=== PATIENT | female | born 1955 | race American Indian/Alaskan Native ===

== ENCOUNTER 2017-04-17 15:27 | Outpatient (CLI) | payer BC ==
--- NOTE | 2017-04-17 16:58 | Mammography Report ---
BILATERAL MAMMOGRAM: FINDINGS: There are scattered fibroglandular densities (approximately 25%-50% glandular). No mass, distortion, suspicious calcification, or skin change is seen. No significant changes when compared to prior exams in 2016 and 2015. Complete resolution of sebaceous cyst previously noted in right breast. CAD was utilized. IMPRESSION: Negative mammogram. There is no mammographic evidence of malignancy. RECOMMENDATION: Follow-up per ACS guidelines. BI-RADS CATEGORY: 1 = Negative ACR BI-RADS MAMMOGRAPHIC CODES: 0 = Needs additional imaging evaluation; 1 = Negative; 2 = Benign; 3 = Probably benign; 4 = Suspicious; 5 = Malignant; 6 = Known biopsy-proven malignancy COMMENT: 1. Dense breast tissue, i.e., adenosis, fibrocystic changes, etc., may obscure an underlying neoplasm. 2. Approximately 10% of cancers are not detected with mammography. 3. A negative mammography report should not delay biopsy if a clinically suspicious mass is present. COMMENT: Patient follow-up letters are generated in N-1-1.
== END 2017-04-17 15:28 | disposition home or self-care (01) ==
LOC: MAMMO 15:27
PROVIDERS: ATTEND Obstetrics & Gynecology
DX: Z12.31 Encounter for screening mammogram for malignant neoplasm of breast (principal)
CPT/HCPCS: 77067; G0202

== ENCOUNTER 2017-09-26 12:23 | Outpatient (CLI) | payer BC ==
--- NOTE | 2017-09-26 15:39 | Cat Scan Report ---
FINAL REPORT EXAM: CT NECK WO CON HISTORY: CERVICALGIA/M54.2/NECK PAIN PT FEELS LIKE NECK IS SPASMING TECHNIQUE: Axial noncontrast CT images of the cervical spine were performed. Multiplanar reformats are performed on the acquisition scanner. Total exam DLP 414.69 mGy-cm Comparison: None FINDINGS: Orbits and orbital apices are unremarkable. There is mild prominence of the lateral ventricles compatible with small vessel ischemic disease and ex vacuo dilatation lateral ventricles. There is right frontal and ethmoid opacification. There is bilateral ethmoid and bilateral maxillary sinus mucosal thickening. Sphenoid sinuses and mastoid air cells are clear. Nasopharynx is unremarkable. Parotid glands are symmetric. Oropharynx is within normal limits. There are multiple small cervical chain lymph nodes. Floor of mouth is within normal limits. Thyroid gland is prominent. Imaged lung apices are clear. There is straightening of the normal cervical lordosis. There are drooping osteophytes from C3-C4 and C4-C5. Vertebral body heights are maintained. Pedicles are intact. Facets shingle normally. There is facet osteoarthritis. There is mild dextroscoliosis cervical spine. There appears to be partial fusion of the C3-C4 vertebral body with a garry vertebral body of C3. This appears to be a developmental anomaly. The sternocleidomastoid are symmetric suggesting there is no significant torticollis element. C1 lateral masses align normally on C2. The odontoid is intact. Axial images demonstrate diffuse facet osteoarthritis. No definite canal stenosis. Patient is nearly edentulous. 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 Partial fusion of the left C4/C5 facets. No definite canal stenosis. Symmetric sternocleidomastoid suggesting no imaging findings of torticollis. No acute fractures. Pansinus disease.
== END 2017-09-26 12:24 | disposition home or self-care (01) ==
LOC: CT 12:23
PROVIDERS: ATTEND Internal Medicine
DX: J32.4 Chronic pansinusitis (principal); M47.892 Other spondylosis, cervical region; M41.82 Other forms of scoliosis, cervical region; M43.22 Fusion of spine, cervical region
CPT/HCPCS: 70490

== ENCOUNTER 2018-12-04 07:47 | Outpatient (CLI) | payer BC ==
--- NOTE | 2018-12-04 11:00 | Mammography Report ---
BILATERAL DIGITAL SCREENING MAMMOGRAM with CAD: 12/04/18 07:47:00 CLINICAL: Routine screening. COMPARISON: 04/17/17 FINDINGS: There are bilateral scattered areas of fibroglandular density.No mass, architectural distortion or suspicious calcifications. IMPRESSION: No mammographic evidence of malignancy. BI-RADS CATEGORY: 1 -- Negative RECOMMENDATION: Routine mammographic screening in one year. COMMENT: Patient follow-up letters are generated by our [employer] application.
== END 2018-12-04 07:48 | disposition home or self-care (01) ==
LOC: MAMMO 07:47
PROVIDERS: ATTEND Obstetrics & Gynecology
DX: Z12.31 Encounter for screening mammogram for malignant neoplasm of breast (principal)
CPT/HCPCS: 77067

== ENCOUNTER 2021-05-18 14:21 | Outpatient (CLI) | payer BC ==
--- NOTE | 2021-05-21 12:07 | Mammography Report ---
DIGITAL SCREENING MAMMOGRAM WITH CAD, 05/18/2021 CLINICAL INFORMATION / INDICATION: Routine screening mammography. Z12.31 TECHNIQUE: Digital bilateral 2D mammography was obtained in the craniocaudal and mediolateral obliqu e projections. This examination was interpreted with the benefit of Computer-Aided Detection analysis . COMPARISON: 12/09/2013 through 01/12/2020. FINDINGS: Breast Density: There are scattered areas of fibroglandular density. No dominant mass, suspicious calcifications, or architectural distortion in either breast. Mild asymmetric breast tissue in the right superior breast is stable. IMPRESSION: No mammographic evidence of malignancy. Follow up recommendation: Routine yearly BI-RADS Category 2: Benign. A "normal" or negative report should not discourage follow up or biopsy of a clinically significant f inding. A written summary of these findings will be mailed to the patient. The patient will be entered into a mammography reporting system which will generate a reminder letter for the patient's next appointmen t at the appropriate interval. The [employer] recommends yearly mammograms starting at age 40 and continuing as l ronal as a woman is in good health. Breast MRI is recommended for women with an approximate 20-25% or greater lifetime risk of breast cancer, including women with a strong family history of breast or ova natan cancer or who have been treated for Hodgkin's disease. Signer Name: Endy Huff MD Signed: 05/21/2021 12:02 PM Workstation Name: [id number]
== END 2021-05-18 14:22 | disposition home or self-care (01) ==
LOC: MAMMO 14:21
PROVIDERS: ATTEND Internal Medicine
DX: Z12.31 Encounter for screening mammogram for malignant neoplasm of breast (principal)
CPT/HCPCS: 77067